=== PATIENT | male | born 1960 | race Hispanic/Latino ===

== ENCOUNTER 2024-12-23 14:50 | Emergency (ER) | payer OTHER ==
[~2024-12-23] VITALS: Ht 170.2 cm; Wt 77.1 kg
[2024-12-23 14:54] VITALS: BP 128/75; PULSE 73; RESP 14; TEMP 98.6
--- NOTE | 2024-12-23 17:45 | NUR ---
PATIENT STATES WILL REMOVE MIDLINE OR PICC LINE HIMSELF WHEN ADVISED OF INABILITY OF STAFF TO REMOVE HOSPITAL ACCOUNT MANAGER WITHOUT AN ORDER FROM MD. PATIENT DID NOT ALLOW FOR INSTRUCTIONS ON DISCHARGE OR RISKS TO BE PROVIDED. LEFT WITHOUT DISCHARGE PAPER WORK OR INSTRUCTIONS. PROVIDER ADRIANNA CERDA NP MADE AWARE.
--- NOTE | 2024-12-23 17:45 | NUR ---
DID NOT ALLOW FOR RE ASSESSMENT OF VITAL SIGNS
--- NOTE | 2024-12-23 17:53 | ERN ---
ED Note History of Present Illness Stated Complaint: REMOVAL MIDLINE CATHETER Chief Complaint: Other Problems Time Seen by MD: 15:04 Time Seen by Midlevel: 15:05 Dictation: [age] year old male coming in for removal of the left midline. Patient sta pierce he was receiving IV antibiotics for it Epidodyoorchitis almost states he is complaining they treatment today. Patient states he was told by his PCP on to come to the ER to remove the midline. No complaints. Allergies: Coded Allergies: No Known Drug Allergies (Unverified Allergy, Unknown, 12/23/24) Past Medical History Past Medical History: Cancer, Other Additional Past Medical Hx: EPIDIDYMOORCHITIS, PROSTATE CA Surgical History: Other Surgical History Other: RT KNEE SX Review of System Dictation Constitutional: Negative for fever,chills, and weight loss Eyes: Negative for injury, pain,redness, and discharge ENT: Negative for injury,pain or swelling Cardiovascular: Negative for chest pain, palpitations, and edema Respiratory: Negative for shortness of breath, cough, and wheezing, Abdomen/GI: Negative for abdominal pain, nausea, vomiting, diarrhea, and constipation Back: Negative for injury and pain : Negative for injury, bleeding and discharge MS/Extremity: Negative for injury and deformity Skin: Negative for rash, and discoloration Neuro: Negative for headache, weakness, numbness, tingling, and seizure Psych: Negative for suicide ideation, homicidal ideation, and hallucinations Review of Systems: was completed Initial Vital Sign VS Vital Signs Date Time Temp Pulse Resp B/P (MAP) Pulse Ox O2 Delivery O2 Flow Rate FiO2 12/23/24 14:54 98.6 73 14 128/75 97 Room Air 0 Physical Exam Dictation Constitutional: Negative for fever,chills, and weight loss Eyes: Negative for injury, pain,redness, and discharge ENT: Negative for injury,pain or swelling Cardiovascular: Negative for chest pain, palpitations, and edema Respiratory: Negative for shortness of breath, cough, and wheezing, Abdomen/GI: Negative for abdominal pain, nausea, vomiting, diarrhea, and constipation Back: Negative for injury and pain : Negative for injury, bleeding and discharge MS/Extremity: Negative for injury and deformity Skin: Negative for rash, and discoloration Neuro: Negative for headache, weakness, numbness, tingling, and seizure Psych: Negative for suicide ideation, homicidal ideation, and hallucinations ED Course ED Course Vital Signs Date Time Temp Pulse Resp B/P (MAP) Pulse Ox O2 Delivery O2 Flow Rate FiO2 12/23/24 14:54 98.6 73 14 128/75 97 Room Air 0 Medical Decision Making MDM MDM: [age] year old male coming in for removal of the left midline. Patient states he was receiving IV antibiotics for it Epidodyoorchitis almost states he is complaining they treatment today. Patient states he was told by his PCP on to come to the ER to remove the midline. No complaints. Test with the patient that I can not remove the midline or PICC line unless I have orders from however placed it. Educated patient that he is to return either to his PCP to ever placed a midline in [place]. Differential diagnosis: PICC line malfunction, PICC line restriction Rationale: Tests considered and ordered secondary to shared decision making include: Previous outside records reviewed: Old ER visits. Risk of complication and/or morbidity or mortality of patient management: None Medications-Per medication reconciliation Need for hospitalization: Patient does not meet criteria for hospitalization. Need for emergency major/minor surgery: No There are no social concerns with this patient. Prescription drug management Prescriptions will include symptomatic care Patient's prior external medical records from other ER visits were reviewed by me as indicated. Prior testing and results from previous visits were reviewed. Prior tests were taken into account with medical decision making and resource utilization, independent historian/historians were used to obtain complete medical history. I independently interpreted the test that were performed, results were reviewed by me and considered findings on radiology if ordered. Medical management and examination interpretation discussions were had by me with other qualified healthcare professionals as indicated for the patient's care. DX & DISP Disposition: Discharge Departure Impression: Primary Impression: Wellness examination Condition: Stable Referrals: SELF,REFERRAL (PCP) Time of Disposition: 17:53 I have reviewed the case, and I agree with, Diagnosis and Plan I PERFORMED A SUBSTANTIVE PORTION OF THE VISIT. I HAVE REVIEWED AND PERSONALLY MADE AND APPROVE THE MANAGEMENT PLAN THAT IS DOCUMENTED IN THE NOTE BY MYSELF OR THE AP P. I ACKNOWLEDGE FULL RESPONSIBILITY FOR THE PATIENT'S MANAGEMENT PLAN. ADRIANNA CERDA NP December 23, 2024 17:53
== END 2024-12-23 17:57 | disposition home or self-care (01) ==
LOC: EDH 14:50
DX: Z45.2 Encounter for adjustment and management of vascular access device (principal)
CPT/HCPCS: 99281